=== PATIENT | female | born 1945 | race Caucasian/White ===

== ENCOUNTER 2018-12-10 09:04 | Day surgery (SDC) | payer MEDICARE, OTHER ==
[~2018-12-10] VITALS: Ht 165.1 cm; Wt 74.8 kg
[~2018-12-10 09:04] MED LIST: Advil200 M1 PO; Aspirin EC81 MG PO; CYCL10 PO; Daily Multiple1 EACH PO; HYDACE5325 PO; VITAMIN D33000 UNIT PO
--- NOTE | 2018-12-10 09:40 | NUR ---
History, Chart, Medications and Allergies reviewed before start of procedure. Patient confirms NPO status and agrees with scheduled surgery. Lungs clear T/O to Auscultation. Pre-Op teaching done. Pt verbalizes understanding. Patient reports completing Chlorhexadine shower X2 prior to admission to hospital. NO HAIR PRESENT ON OPERATIVE KNEE, SKIN INTACT NO ISSUES.
--- NOTE | 2018-12-10 10:08 | NUR ---
NOZIN SWABS TO BILATERAL NARES COMPLETED.
--- NOTE | 2018-12-10 10:11 | NUR ---
PATIENT UP TO BR FOR UNMEASURED VOID.
--- NOTE | 2018-12-10 10:14 | NUR ---
CONFIRMED WITH PREOPERATIVE RN, BRANDEE MOREAU THAT NO TYPE AND SCREEN WAS ORDERED. WILL VERIFY WITH DR POTTER PRIOR TO SURGERY.
--- NOTE | 2018-12-10 10:35 | NUR ---
DISCUSSED PATIENT LABS AND T&S WITH SIGIFREDO HELLER TO PROCEED WITHOUT T&S PER .
--- NOTE | 2018-12-10 10:37 | NUR ---
GRAVE CLEANER REPORT COMPLETED AT BEDSIDE.
--- NOTE | 2018-12-10 18:30 | NUR ---
SHIFT SUMMARY PT A&OX4, VSS, S/P LTKA, SURGICAL DRESSING/KIKI WRAP CDI, TEDS, SCDS, POLAR MARIBELL ON. PAIN MANAGED PER EMAR. RAFFY PO, DENIES N&V. AMB SBA W/FWW & GB TO BRP AND CHAIR. WCTM & TX PER EMAR UNTIL REPORT GIVEN TO ONCKARIN WILL RN.
[2018-12-11 04:29] LABS: BASOPHILS ABSOLUTE AUTO 0.03 K/mm3 (0.00-0.23); BASOPHILS PERCENT AUTO 0 % (0-2); EOSINOPHILS PERCENT AUTO 1 % (0-6); Hematocrit 35.7 % (33.0-51.0); Hemoglobin 11.6 g/dL (11.5-16.0); IMMATURE GRAN ABSOLUTE AUTO 0.02 K/mm3 (0.00-0.10); IMMATURE GRAN PERCENT AUTO 0 % (0-1); LYMPHOCYTES ABSOLUTE AUTO 1.23 K/mm3 (0.84-5.20); LYMPHOCYTES PERCENT AUTO 12 % (21-46); MONOCYTES ABSOLUTE AUTO 0.89 K/mm3 (0.16-1.47); MONOCYTES PERCENT AUTO 9 % (4-13); Mean Corpuscular HGB 33.7 pg (26.0-34.0); Mean Corpuscular HGB Conc 32.5 g/dL (31.5-36.5); Mean Corpuscular Volume 104 fL (80-100); Mean Platelet Volume 9.7 fL (9.1-12.4); NEUTROPHILS ABSOLUTE AUTO 7.66 K/mm3 (1.96-9.15); NEUTROPHILS PERCENT AUTO 77 % (41-73); Platelet Count 209 K/mm3 (150-400); RDW Coefficient Variation 12.1 % (11.7-14.2); RDW Standard Deviation 46.1 fL (35.1-46.3); Red Blood Cell Count 3.44 M/mm3 (3.80-5.20); White Blood Cell Count 9.93 K/mm3 (4.00-11.30)
[2018-12-11 04:50] LABS: Anion Gap 6 mmol/L (6-16); Blood Urea Nitrogen 14 mg/dL (8-24); Bun/Creatinine Ratio 23.9 (12.0-20.0); CO2, Blood 27 mmol/L (21-32); Calcium, Blood 8.4 mg/dL (8.5-10.1); Chloride, Blood 108 mmol/L (98-108); Creatinine, Blood 0.59 mg/dL (0.40-1.00); Glomerular Filtration Rate >60 (60-); Glucose, Blood 128 mg/dL (70-99); Potassium, Blood 4.1 mmol/L (3.5-5.5); Sodium, Blood 141 mmol/L (136-145)
--- NOTE | 2018-12-11 14:51 | NUR ---
Per admit trigger, I provided prayer and encouragement to Mrs. Leone at bedside. She is hopeful and happy to be going home today. No needs presented.
[2018-12-11] MEDS ORDERED: ASPI325EC PO (15:32)
[2018-12-11] MEDS ORDERED: OXYC5 PO (15:32)
--- NOTE | 2018-12-11 16:58 | NUR ---
DISCHARGE PT PROVIDED WITH WRITTEN AND VERBAL DISCHARGE INFORMATION. SHE REPORTED UNDERSTANDING AFTER QUESTIONS WERE ANSWERED. DRESSINGS PROVIDED. VSS. PT ESCORTED TO VEHICLE BY GIORGIO MATHEW AT APPROXIMATELY [id number].
== END 2018-12-11 16:55 | disposition home or self-care (01) ==
LOC: ORSCMMR 09:04 → ORD 10:30 → ORSCMMR 10:30 → SURS 15:04 → ORSCMMR 12-11 16:55
PROVIDERS: Orthopaedic Surgery
PROC: 0SRD0J9 Replacement of Left Knee Joint with Synthetic Substitute, Cemented, Open Approach (ICD-10-PCS; principal; 2018-12-10 10:30)
DX: M17.12 Unilateral primary osteoarthritis, left knee (principal); Z87.891 Personal history of nicotine dependence
CPT/HCPCS: 36415; 73560-LT; 80048; 83735; 85025; 88300; 97110; 97116; 97162; 97530; C1713; C1776; J0171; J0690; J0735; J1170; J1885; J2250; J2405; J2795; J3010; J7120

== ENCOUNTER → 2020-10-05 | Outpatient (CLI) | payer MEDICARE ==
[~2020-10-05] MED LIST changes: +ASPI325EC PO; +OXYC5 PO
[2020-10-06 10:02] LABS: Stool Occult Bld Immuno 1 Negative (NEGATIVE); Stool Occult Bld Immuno 2 Negative (NEGATIVE)
== END | disposition home or self-care (01) ==
LOC: LAB SHORT 09:00 → LAB 09:00 → LAB FUT 08-11 10:40 → EDSTATUS 08-11 10:40
PROVIDERS: Internal Medicine Gastroenterology
DX: Z12.11 Encounter for screening for malignant neoplasm of colon (principal)
CPT/HCPCS: G0328

== ENCOUNTER → 2023-01-19 | Outpatient (CLI) | payer MEDICARE | END | disposition home or self-care (01) | LOC: LAB SHORT 15:40 → LAB 15:40 | DX: E11.9 Type 2 diabetes mellitus without complications (principal) | CPT/HCPCS: 82043 ==

== ENCOUNTER 2023-04-20 07:16 | Day surgery (SDC) | payer MEDICARE ==
[~2023-04-20] VITALS: Ht 165.1 cm; Wt 74.6 kg
[2023-04-20] MEDS ORDERED: Lovastatin20 MG PO (07:49)
[2023-04-20] MEDS ORDERED: B12-FOLIC ACID1 EACH PO (07:49)
[2023-04-20 10:06] VITALS: BP 114/57
--- NOTE | 2023-04-20 10:07 | NUR ---
04/20/23 Marley Herrera PT A&O. TRANSFERS TO RECLINER WITH MINIMAL DIFFICULTY. VSS. NADN. PT DENIES PAIN AT THIS TIME. AT BEDSIDE. WILL CONTINUE TO MONITOR.
== END 2023-04-20 10:56 | disposition home or self-care (01) ==
LOC: ORSCSDS 07:16
PROVIDERS: Orthopaedic Surgery
PROC: 01N50ZZ Release Median Nerve, Open Approach (ICD-10-PCS; principal; 2023-04-20 08:30)
PROC: 01N40ZZ Release Ulnar Nerve, Open Approach (ICD-10-PCS; principal; 2023-04-20 08:30)
DX: G56.01 Carpal tunnel syndrome, right upper limb (principal); G56.21 Lesion of ulnar nerve, right upper limb; E78.5 Hyperlipidemia, unspecified; E11.40 Type 2 diabetes mellitus with diabetic neuropathy, unspecified; Z79.899 Other long term (current) drug therapy; Z87.891 Personal history of nicotine dependence; Z79.82 Long term (current) use of aspirin
CPT/HCPCS: 82947; J0171; J0690; J1100; J2405; J2704; J2795; J3010; J7120

== ENCOUNTER 2023-10-19 06:05 | Day surgery (SDC) | payer MEDICARE ==
[~2023-10-19] VITALS: Ht 165.1 cm; Wt 72.0 kg
[~2023-10-19 06:05] MED LIST changes: -ASPI325EC PO; +B-121000 MC7; -Daily Multiple1 EACH PO; +LOW DOSE ASPIRI81 M1; +Lactated Ringer's 1,000 ML IV ONE; +Lovastatin10 MG PO; +MULTI-VITAMIN1 EAC2; +VITAMIN D31250 MC2 PO; -VITAMIN D33000 UNIT PO
[2023-10-19] MEDS ORDERED: NS 50 ML IV ONE (06:26)
[2023-10-19] MEDS ORDERED: CeFAZolin Sodium 2,000 MG VIAL ONE (06:26)
[2023-10-19] MEDS ORDERED: Lactated Ringer's 1,000 ML IV ONE (06:40)
[2023-10-19] MEDS ORDERED: Ropivacaine 0.5% HCl/Pf 5 MG/ML 20ML VIAL ONE (07:01)
[2023-10-19] MEDS ORDERED: EPINEPhrine HCl 1 MG/ML 1ML Amp ONE (07:01)
[2023-10-19] MEDS ORDERED: FentaNYL Citrate 50 MCG/ML 2 ML Injection ONE (07:19)
[2023-10-19] MEDS ORDERED: propofoL 20 ML IV ONE (07:20)
[2023-10-19] MEDS ORDERED: Dexamethasone Sod Phos 10 MG/ML 1ML VIAL ONE (07:25)
[2023-10-19] MEDS ORDERED: Rocuronium Bromide 10 MG/ML 5ML Injection IV ONE (07:25)
[2023-10-19] MEDS ORDERED: Ondansetron HCl 2 MG / ML 2ML Vial ONE (07:25)
--- NOTE | 2023-10-19 07:51 | NUR ---
10/19/23 0750 Hemalatha Hernandez 20ML OF ROPIVACAINE 0.5% MIXED AND VERIFIED WITH 0.1ML OF EPI (1MG/ML) TO MAKE ROPIVACAINE 0.5% WITH EPI 1:200,000 FOR INJECTION AT THE OPSITE BY DR FINK.
[2023-10-19 08:32] VITALS: BP 131/70
== END 2023-10-19 09:09 | disposition home or self-care (01) ==
LOC: ORSCSDS 06:05
PROVIDERS: Orthopaedic Surgery
PROC: 01N40ZZ Release Ulnar Nerve, Open Approach (ICD-10-PCS; principal; 2023-10-19 07:30)
DX: G56.22 Lesion of ulnar nerve, left upper limb (principal); I10 Essential (primary) hypertension; R73.03 Prediabetes; E78.5 Hyperlipidemia, unspecified; Z79.82 Long term (current) use of aspirin; Z79.899 Other long term (current) drug therapy; Z87.891 Personal history of nicotine dependence
CPT/HCPCS: 82947; J0171; J0690; J1100; J2405; J2704; J2795; J3010; J7120